=== PATIENT | male | born 1970 | race American Indian/Alaskan Native ===

== ENCOUNTER 2019-03-20 19:16 | Inpatient (IN) | payer OTHER ==
--- NOTE | 2019-03-20 21:03 | Emergency Department Report ---
Blank Doc - Documentation Documentation: 48-year-old male that presents with left sided abdominal pain with radiation to left testicular area. This initial assessment/diagnostic orders/clinical plan/treatment(s) is/are subject to change based on patient's health status, clinical progression and re- assessment by fellow clinical providers in the ED. Further treatment and workup at subsequent clinical providers discretion. Patient/guardians urged not to elope from the ED as their condition may be serious if not clinically assessed and managed. Initial orders include: 1- Patient sent to [facility] for further evaluation and treatment 2- labs 3- UA 4- US testicular
[2019-03-20] MEDS ORDERED: SODIUM CHLORIDE 0.9% 1000 ML 1,000 ML IV ONE (22:00)
[2019-03-20] MEDS ORDERED: KETOROLAC 30 MG/1 ML INJ IV ONE (22:00)
[2019-03-20] MEDS ORDERED: ONDANSETRON 4 MG/2 ML INJ IV ONE (22:00)
[2019-03-20 22:11] LABS: Basophils # (Auto) 0.1 K/mm3 (0.0-0.1); Basophils % (Auto) 0.9 % (0.0-1.8); Eosinophils # (Auto) 0.1 K/mm3 (0.0-0.4); Eosinophils % (Auto) 1.2 % (0.0-4.3); Hematocrit 38.5 % (35.5-45.6); Hemoglobin 13.1 gm/dl (11.8-15.2); Lymphocytes # (Auto) 2.7 K/mm3 (1.2-5.4); Lymphocytes % (Auto) 27.2 % (13.4-35.0); Mean Corpuscular HGB Conc 34 % (32-34); Mean Corpuscular Volume 83 fl (84-94); Monocytes # (Auto) 0.9 K/mm3 (0.0-0.8); Monocytes % (Auto) 9.1 % (0.0-7.3); Platelet Count 246 K/mm3 (140-440); Red Blood Count 4.65 M/mm3 (3.65-5.03); Red Cell Distribution Width 13.7 % (13.2-15.2)
--- NOTE | 2019-03-20 22:21 | Ultrasound Report ---
Scrotal Ultrasound HISTORY: testicular pain. TECHNIQUE: Grayscale and color imaging performed. COMPARISON: None FINDINGS: Right testicle measures 4.5 x 2.1 x 3.0 cm. Left testicle measures 4.3 x 2.3 x 3.0 cm. Ther e is preserved blood flow. The epididymal heads are normal. No hydrocele identified. No hernia. IMPRESSION: Unremarkable exam. Signer Name: Pavan Cleary MD Signed: 03/20/2019 10:17 PM Workstation Name: [id number]
[2019-03-20 22:39] LABS: Alanine Aminotransferase 19 units/L (7-56); Albumin 4.2 g/dL (3.9-5); BUN/Creatinine Ratio 14; Blood Urea Nitrogen 19 mg/dL (9-20); Calcium 9.3 mg/dL (8.4-10.2); Hemolysis Index 2
--- NOTE | 2019-03-21 00:03 | Cat Scan Report ---
CT ABDOMEN AND PELVIS WITH CONTRAST INDICATION: Left lower quadrant pain. COMPARISON: No relevant prior imaging study available. TECHNIQUE: Axial, coronal and sagittal CT imaging of the abdomen and pelvis was performed after inje ction of 100 cc Omnipaque [address] scans at this location are performed using CT dose re duction for ALARA by means of automated exposure control. FINDINGS: LOWER CHEST: No significant abnormality. LIVER: No significant abnormality. BILIARY: No significant abnormality. PANCREAS: No significant abnormality. SPLEEN: No significant abnormality. ADRENALS: No significant abnormality. KIDNEYS AND URETERS: No significant abnormality. GI TRACT: No significant abnormality of the stomach or small bowel. Sigmoid diverticulosis is noted w ith mild thickening of the proximal third of the sigmoid colon with surrounding inflammation. No belkis tional significant abnormality of the colon or appendix. PERITONEUM: There is a suspected contained perforation on image 146 of series 2 with a single focus o f probable extraluminal gas. No additional free air is seen. No fluid collection is identified. LYMPH NODES: No significant adenopathy. VASCULATURE: No significant abnormality. URINARY BLADDER: No significant abnormality. REPRODUCTIVE ORGANS: No significant abnormality. ADDITIONAL FINDINGS: None. SKELETAL SYSTEM: No acute abnormality. Mild degenerative changes are noted along the SI joints. IMPRESSION: Acute sigmoid diverticulitis with a suspected contained perforation. Signer Name: Juan Miguel Parekh MD Signed: 03/20/2019 11:59 PM Workstation Name: [id number]
--- NOTE | 2019-03-21 00:18 | Emergency Department Report ---
ED Abdominal Pain HPI - General Chief Complaint: Abdominal Pain Stated Complaint: ABD PAIN RADIATING TO LT TESTICLE Time Seen by Provider: 03/20/19 21:02 Source: patient Mode of arrival: Ambulatory Limitations: No Limitations - History of Present Illness Initial Comments: Patient is a 48-year-old -Turkish male with no past medical history who presents to the ED with complaint of acute onset persistent severe left lower quadrant pain that radiates to the left inguinal area with intermittent diarrhea for the last 2 days. Patient states that he had a similar symptoms over 3 months ago but never came to the hospital for evaluation at that time. Patient states that in the last 2 days the pain has worsened. Patient denies testicular pain, dysuria, urinary frequency and urgency, hematuria, flank pain, nausea and vomiting, fever, chills, cough, chest pain, shortness of breath, dizziness or syncope. MD Complaint: abdominal pain (LLQ pain), other (Diarrhe) -: Sudden, days(s) (2) Location: LLQ Radiation: LLQ Migration to: other (left inguinal) Severity: moderate Severity scale (0 -10): 6 Quality: aching, sharp Consistency: constant Improves With: nothing Worsens With: nothing Associated Symptoms: denies other symptoms, diarrhea. denies: nausea, vomiting, fever, chills, constipation, dysuria, hematemesis, hematochezia, melena, hematu claritza, anorexia, syncope - Related Data Allergies Allergy/AdvReac Type Severity Reaction Status Date / Time No Known Allergies Allergy Verified 03/21/19 00:35 ED Review of Systems ROS: Stated complaint: ABD PAIN RADIATING TO LT TESTICLE Other details as noted in HPI Constitutional: denies: chills, fever Eyes: denies: eye pain, eye discharge, vision change ENT: denies: ear pain, throat pain Respiratory: denies: cough, shortness of breath, wheezing Cardiovascular: denies: chest pain, palpitations Endocrine: no symptoms reported Gastrointestinal: abdominal pain, diarrhea. denies: nausea, vomiting Genitourinary: denies: urgency, dysuria Musculoskeletal: denies: back pain, joint swelling, arthralgia Skin: denies: rash, lesions Neurological: denies: headache, weakness, paresthesias Psychiatric: denies: anxiety, depression Hematological/Lymphatic: denies: easy bleeding, easy bruising ED Past Medical Hx - Past Medical History Previous Medical History?: No - Surgical History Past Surgical History?: No - Social History Smoking Status: Current Every Day Smoker Substance Use Type: Cocaine ED Physical Exam - General Limitations: No Limitations General appearance: alert, in no apparent distress - Head Head exam: Present: atraumatic, normocephalic, normal inspection - Eye Eye exam: Present: normal appearance, PERRL, EOMI Pupils: Present: normal accommodation - ENT ENT exam: Present: normal exam, normal orophraynx, mucous membranes moist, TM's normal bilaterally, normal external ear exam - Neck Neck exam: Present: normal inspection, full ROM - Respiratory Respiratory exam: Present: normal lung sounds bilaterally. Absent: respiratory distress, wheezes, rales, rhonchi, chest wall tenderness, accessory muscle use, decreased breath sounds, prolonged expiratory - Cardiovascular Cardiovascular Exam: Present: regular rate, normal rhythm, normal heart sounds. Absent: systolic murmur, diastolic murmur, rubs, gallop - GI/Abdominal GI/Abdominal exam: Present: soft, tenderness (Palpable left lower quadrant rebound tenderness with guarding ), guarding, rebound, normal bowel sounds. Absent: hyperactive bowel sounds - Extremities Exam Extremities exam: Present: normal inspection, full ROM, normal capillary refill - Back Exam Back exam: Present: normal inspection, full ROM. Absent: tenderness, CVA tenderness (R), CVA tenderness (L), muscle spasm, paraspinal tenderness, vertebral tenderness - Neurological Exam Neurological exam: Present: alert, oriented X3, CN II-XII intact, normal gait, reflexes normal - Psychiatric Psychiatric exam: Present: normal affect, normal mood - Skin Skin exam: Present: warm, dry, intact, normal color. Absent: rash ED Course Vital Signs 03/20/19 19:42 Temperature 98.2 F Pulse Rate 96 H Respiratory 18 Rate Blood Pressure 139/86 O2 Sat by Pulse 98 Oximetry ED Medical Decision Making - Lab Data Result diagrams: 03/20/19 21:42 03/20/19 21:42 - Radiology Data Radiology results: report reviewed, image reviewed Findings [facility] [address] [place] [address] Cat Scan Report Signed Patient: MANDI LOJA MR#: [id number] : 1970 Acct:[id number] Age/Sex: 48 / M ADM Date: 03/20/19 Loc: ED Attending Dr: Ordering Physician: MARIA E BISWAS Date of Service: 03/20/19 Procedure(s): CT abdomen pelvis w con Accession Number(s): [id number] cc: MARIA E BISWAS CT ABDOMEN AND PELVIS WITH CONTRAST INDICATION: Left lower quadrant pain. COMPARISON: No relevant prior imaging study available. TECHNIQUE: Axial, coronal and sagittal CT imaging of the abdomen and pelvis was performed after injection of 100 cc Omnipaque [address] scans at this location are performed using CT dose reduction for ALARA by means of automated exposure control. FINDINGS: LOWER CHEST: No significant abnormality. LIVER: No significant abnormality. BILIARY: No significant abnormality. PANCREAS: No significant abnormality. SPLEEN: No significant abnormality. ADRENALS: No significant abnormality. KIDNEYS AND URETERS: No significant abnormality. GI TRACT: No significant abnormality of the stomach or small bowel. Sigmoid diverticulosis is noted with mild thickening of the proximal third of the sigmoid colon with surrounding inflammation. No additional significant abnormality of the colon or appendix. PERITONEUM: There is a suspected contained perforation on image 146 of series 2 with a single focus of probable extraluminal gas. No additional free air is seen. No fluid collection is identified. LYMPH NODES: No significant adenopathy. VASCULATURE: No significant abnormality. URINARY BLADDER: No significant abnormality. REPRODUCTIVE ORGANS: No significant abnormality. ADDITIONAL FINDINGS: None. SKELETAL SYSTEM: No acute abnormality. Mild degenerative changes are noted along the SI joints. IMPRESSION: Acute sigmoid diverticulitis with a suspected contained perforation. Signer Name: Juan Miguel Parekh MD Signed: 03/20/2019 11:59 PM Workstation Name: [id number] Transcribed By: MN Dictated By: JuanM iguel Parekh MD Electronically Authenticated By: Juan Miguel Parekh MD Signed Date/Time: 03/20/19 6069 DD/ 54 TD/TT: - Medical Decision Making This is a 48-year-old -Turkish male with no past medical history presen josé miguel to the ED with acute onset persistent severe left lower quadrant abdominal pain with diarrhea for the last 2 days. In the ED, patient is alert and oriented x3 and is not in any distress but appears to be in pain. Physical exam demonstrates a palpable left lower quadrant rebound tenderness with guarding. Lab test results were reviewed and are all nonactionable including urinalysis. Abdomen pelvis CT scan with contrast shows acute sigmoid diverticulitis with a suspected contained perforation. The patient was initially treated for pain with Toradol but subsequently given morphine 4 mg IV x1 for pain control. Patient was also given normal saline 1 L IV bolus and Zofran. Patient's case was discussed with the ED attending physician Dr. Hendrickson who also evaluated the patient and advised that the General Surgeon Dr. Callahan and the hospitalist physician on [facility] Dr. Sanchez be paged for admission. - Differential Diagnosis Diverticulitis; Colitis; Peritonitis; UTI; Kidney stones Critical care attestation.: If time is entered above; I have spent that time in minutes in the direct care of this critically ill patient, excluding procedure time. ED Disposition Clinical Impression: Acute abdominal pain in left lower quadrant, Perforation of sigmoid colon due to diverticulitis Disposition: OP ADMIT IP TO THIS HOSP Is pt being admited?: No Does the pt Need Aspirin: No Condition: Stable Time of Disposition: 00:34 Print Language: ALBANIAN
[2019-03-21] MEDS ORDERED: PIPERACIL/TAZOBACTA 4.5/NS 100 4.5 GM/100 ML VIAL IV ONE (00:19)
[2019-03-21] MEDS ORDERED: MORPHINE 4 MG/1 ML INJ IV ONE (00:19)
[2019-03-21] MEDS ORDERED: ONDANSETRON 4 MG/2 ML INJ IV ONE (00:19)
--- NOTE | 2019-03-21 00:29 | Event Note ---
Date: 03/21/19 Patient seen and examined. IV fluids, antibiotics have been ordered. Please note that Toradol was ordered prior to my personal evaluation of this patient. Patient indicates that he does not have a need for additional pain medication at this time. Discussed significance of CT scan findings with patient. He is amenable to admission and hospitalization. PA to contact general surgery and hospitalist team to arrange admission. Patient hemodynamically stable at this time, and does not appear to be in any significant distress. Agree with plan for admission. Vital Signs 03/20/19 19:42 Temperature 98.2 F Pulse Rate 96 H Respiratory 18 Rate Blood Pressure 139/86 O2 Sat by Pulse 98 Oximetry Lab Results 03/20/19 03/20/19 03/20/19 Range/Units 21:42 21:42 21:48 WBC 10.1 (4.5-11.0) K/mm3 RBC 4.65 (3.65-5.03) M/mm3 Hgb 13.1 (11.8-15.2) gm/dl Hct 38.5 (35.5-45.6) % MCV 83 L (84-94) fl MCH 28 (28-32) pg MCHC 34 (32-34) % RDW 13.7 (13.2-15.2) % Plt Count 246 (140-440) K/mm3 Lymph % (Auto) 27.2 (13.4-35.0) % Emery % (Auto) 9.1 H (0.0-7.3) % Eos % (Auto) 1.2 (0.0-4.3) % Baso % (Auto) 0.9 (0.0-1.8) % Lymph # 2.7 (1.2-5.4) K/mm3 Emery # 0.9 H (0.0-0.8) K/mm3 Eos # 0.1 (0.0-0.4) K/mm3 Baso # 0.1 (0.0-0.1) K/mm3 Seg Neutrophils % 61.6 (40.0-70.0) % Seg Neutrophils # 6.2 (1.8-7.7) K/mm3 Sodium 141 (137-145) mmol/L Potassium 4.2 (3.6-5.0) mmol/L Chloride 101.5 (98-107) mmol/L Carbon Dioxide 24 (22-30) mmol/L Anion Gap 20 mmol/L BUN 19 (9-20) mg/dL Creatinine 1.4 (0.8-1.5) mg/dL Estimated GFR > 60 ml/min BUN/Creatinine Ratio 14 % Glucose 122 H (75-100) mg/dL Calcium 9.3 (8.4-10.2) mg/dL Total Bilirubin 0.30 (0.1-1.2) mg/dL AST 15 (5-40) units/L ALT 19 (7-56) units/L Alkaline Phosphatase 46 (35-129) units/L Total Protein 7.2 (6.3-8.2) g/dL Albumin 4.2 (3.9-5) g/dL Albumin/Globulin Ratio 1.4 % Lipase 50 (13-60) units/L
[2019-03-21] MEDS ORDERED: ONDANSETRON 4 MG/2 ML INJ IV PRN (00:41)
[2019-03-21] MEDS ORDERED: SODIUM CHLORIDE 0.9% 1000 ML 1,000 ML IV SCH (00:45)
[2019-03-21 00:49] LABS: Bilirubin,Urine NEG (Negative); Blood,Urine NEG (Negative); Color,Urine Yellow (Yellow); Mucus,Urine FEW /HPF; Protein,Urine <15 mg/dL mg/dL (Negative); WBC,Urine < 1.0 /HPF (0.0-6.0)
--- NOTE | 2019-03-21 01:52 | History and Physical Report ---
<ANDREA NAVA - Last Filed: 03/21/19 01:52> History of Present Illness Date of examination: 03/21/19 Date of admission: 03/21/2019 Chief complaint: Abdominal and testicular pain History of present illness: 48-year-old -[place] male with no significant past medical history who is an ongoing smoker and occasionally snorts cocaine who presents to [facility] ED with complaints of acute abdominal and testicular pain for the past 2 days. Patient states that he has been experiencing intermittent abdominal pain since November 2018, the pain usually resolves on its own. However 2 days ago he had severe abdominal pain with radiation to testicles that was unrelieved by rest and [id number] ibuprofen. He describes his pain as sharp and aching and rates it 10/10. He decided come in for evaluation. Denies nausea, vomiting, di arrhea, fever, headache, dysuria, hematuria, or recent sick contacts. CT abdomen/pelvis showed acute diverticulitis with contained perforation. General surgery was consulted with plans to see patient later on this morning. Will admit to the surgical floor for further evaluation and treatment. At the time of my examination patient is sitting up in stretcher no apparent distress. Vital signs are stable he is alert and oriented x3, able to answer questions, maintain conversation and and follow directions. He states that his abdominal pain has improved some since receiving IV pain medicine. He currently rates his pain 4/10. Past History Past Surgical History: No surgical history Social history: , lives with family, smoking, other (Cocaine use) Family history: no significant family history Medications and Allergies Allergies Allergy/AdvReac Type Severity Reaction Status Date / Time No Known Allergies Allergy Verified 03/21/19 00:35 Active Meds: Active Medications Enoxaparin Sodium (Enoxaparin) 40 mg SUB-Q QDAY FRANTZ Hydromorphone HCl (Dilaudid) 0.5 mg IV Q3H PRN PRN Reason: Pain , Severe (7-10) Sodium Chloride (Nacl 0.9% 1000 Ml) 1,000 mls @ 75 mls/hr IV DIRECT FRANTZ Stop: 03/21/19 12:00 Levofloxacin/Dextrose (Levaquin 500mg/100ml) 500 mg in 100 mls @ 100 mls/hr IV Q24HR FRANTZ; Protocol Metronidazole (Flagyl 500 Mg/100 Ml) 500 mg in 100 mls @ 100 mls/hr IV Q8HR FRANTZ; Protocol Morphine Sulfate (Morphine) 2 mg IV Q4H PRN PRN Reason: Pain, Moderate (4-6) Ondansetron HCl (Zofran) 4 mg IV Q6H PRN PRN Reason: Nausea And Vomiting Sodium Chloride (Sodium Chloride Flush Syringe 10 Ml) 10 ml IV BID FRANTZ Sodium Chloride (Sodium Chloride Flush Syringe 10 Ml) 10 ml IV PRN PRN PRN Reason: LINE FLUSH Review of Systems All systems: negative Gastrointestinal: abdominal pain Genitourinary Male: testicular pain Exam - Physical Exam Narrative exam: Physical exam General appearance: Present: No acute distress, alert and oriented 3, pleasant, well-developed, well-nourished, adult male - EENT Eyes: Present: PERRL, EOM intact ENT: hearing intact, normal dentition - Neck Neck: Present: supple, normal ROM - Respiratory Respiratory effort: Non-labored Respiratory: Clear throughout - Cardiovascular Heart rate: 96 (bpm) Rhythm: Sinus rhythm Heart Sounds: Present: S1 & S2. Absent: rub, click - Extremities Extremities: no ischemia, pulses intact, - Peripheral Assessment Peripheral Pulses: within normal limits - Abdominal General gastrointestinal: soft, left lower quad tenderness, normal bowel sounds - Integumentary Integumentary: Present: warm, dry - Musculoskeletal Musculoskeletal: Able to move all extremities -Neurological Neurological: CN II-XII intact - Psychiatric Psychiatric: Appropriate for situation ,cooperative - Constitutional Vitals: Temp Pulse Resp BP Pulse Ox 98.2 F 91 H 16 130/84 98 03/21/19 01:07 03/21/19 01:07 03/21/19 01:07 03/21/19 01:07 03/21/19 01:07 Results - Labs CBC & Chem 7: 03/20/19 21:42 03/20/19 21:42 Labs: Laboratory Last Values WBC 10.1 K/mm3 (4.5-11.0) 03/20/19 21:42 RBC 4.65 M/mm3 (3.65-5.03) 03/20/19 21:42 Hgb 13.1 gm/dl (11.8-15.2) 03/20/19 21:42 Hct 38.5 % (35.5-45.6) 03/20/19 21:42 MCV 83 fl (84-94) L 03/20/19 21:42 MCH 28 pg (28-32) 03/20/19 21:42 MCHC 34 % (32-34) 03/20/19 21:42 RDW 13.7 % (13.2-15.2) 03/20/19 21:42 Plt Count 246 K/mm3 (140-440) 03/20/19 21:42 Lymph % (Auto) 27.2 % (13.4-35.0) 03/20/19 21:42 Yates % (Auto) 9.1 % (0.0-7.3) H 03/20/19 21:42 Eos % (Auto) 1.2 % (0.0-4.3) 03/20/19 21:42 Baso % (Auto) 0.9 % (0.0-1.8) 03/20/19 21:42 Lymph # 2.7 K/mm3 (1.2-5.4) 03/20/19 21:42 Yates # 0.9 K/mm3 (0.0-0.8) H 03/20/19 21:42 Eos # 0.1 K/mm3 (0.0-0.4) 03/20/19 21:42 Baso # 0.1 K/mm3 (0.0-0.1) 03/20/19 21:42 Seg Neutrophils % 61.6 % (40.0-70.0) 03/20/19 21:42 Seg Neutrophils # 6.2 K/mm3 (1.8-7.7) 03/20/19 21:42 Sodium 141 mmol/L (137-145) 03/20/19 21:42 Potassium 4.2 mmol/L (3.6-5.0) 03/20/19 21:42 Chloride 101.5 mmol/L (98-107) 03/20/19 21:42 Carbon Dioxide 24 mmol/L (22-30) 03/20/19 21:42 Anion Gap 20 mmol/L 03/20/19 21:42 BUN 19 mg/dL (9-20) 03/20/19 21:42 Creatinine 1.4 mg/dL (0.8-1.5) 03/20/19 21:42 Estimated GFR > 60 ml/min 03/20/19 21:42 BUN/Creatinine Ratio 14 % 03/20/19 21:42 Glucose 122 mg/dL (75-100) H 03/20/19 21:42 Calcium 9.3 mg/dL (8.4-10.2) 03/20/19 21:42 Total Bilirubin 0.30 mg/dL (0.1-1.2) 03/20/19 21:42 AST 15 units/L (5-40) 03/20/19 21:42 ALT 19 units/L (7-56) 03/20/19 21:42 Alkaline Phosphatase 46 units/L (35-129) 03/20/19 21:42 Total Protein 7.2 g/dL (6.3-8.2) 03/20/19 21:42 Albumin 4.2 g/dL (3.9-5) 03/20/19 21:42 Albumin/Globulin Ratio 1.4 % 03/20/19 21:42 Lipase 50 units/L (13-60) 03/20/19 21:48 Urine Color Yellow (Yellow) 03/20/19 23:30 Urine Turbidity Clear (Clear) 03/20/19 23:30 Urine pH 6.0 (5.0-7.0) 03/20/19 23:30 Ur Specific [place] 1.051 (1.003-1.030) H 03/20/19 23:30 Urine Protein <15 mg/dl mg/dL (Negative) 03/20/19 23:30 Urine Glucose (UA) Neg mg/dL (Negative) 03/20/19 23:30 Urine Ketones Neg mg/dL (Negative) 03/20/19 23:30 Urine Blood Neg (Negative) 03/20/19 23:30 Urine Nitrite Neg (Negative) 03/20/19 23:30 Urine Bilirubin Neg (Negative) 03/20/19 23:30 Urine Urobilinogen 2.0 mg/dL (<2.0) 03/20/19 23:30 Ur Leukocyte Esterase Neg (Negative) 03/20/19 23:30 Urine WBC (Auto) < 1.0 /HPF (0.0-6.0) 03/20/19 23:30 Urine RBC (Auto) 1.0 /HPF (0.0-6.0) 03/20/19 23:30 Urine Mucus Few /HPF 03/20/19 23:30 - Imaging and Cardiology Imaging and Cardiology: CT Abdomen/Pelvis: FINDINGS: LOWER CHEST: No significant abnormality. LIVER: No significant abnormality. BILIARY: No significant abnormality. PANCREAS: No significant abnormality. SPLEEN: No significant abnormality. ADRENALS: No significant abnormality. KIDNEYS AND URETERS: No significant abnormality. GI TRACT: No significant abnormality of the stomach or small bowel. Sigmoid diverticulosis is noted with mild thickening of the proximal third of the sigmoid colon with laila rounding inflammation. No additional significant abnormality of the colon or appendix. PERITONEUM: There is a suspected contained perforation on image 146 of series 2 with a single focus of probable extraluminal gas. No additional free air is seen. No fluid collection is identified. LYMPH NODES: No significant adenopathy. VASCULATURE: No significant abnormality. URINARY BLADDER: No significant abnormality. REPRODUCTIVE ORGANS: No significant abnormality. ADDITIONAL FINDINGS: None. SKELETAL SYSTEM: No acute abnormality. Mild degenerative changes are noted along the SI joints. IMPRESSION: Acute sigmoid diverticulitis with a suspected contained perforation. US Testicular: FINDINGS: Right testicle measures 4.5 x 2.1 x 3.0 cm. Left testicle measures 4.3 x 2.3 x 3.0 cm. There is preserved blood flow. The epididymal heads are normal. No hydrocele identified. No hernia. IMPRESSION: Unremarkable exam. Assessment and Plan Assessment and plan: 48-year-old -[place] male with no significant past medical history who is an ongoing smoker and occasionally snorts cocaine who presents to [facility] ED with complaints of acute abdominal and testicular pain for the past 2 days. Acute diverticulitis -With suspected contained perforation seen on today's CT abdomen pelvis -N.p.o. -Start IVF and IV ABX -General surgery consulted -Continue supportive care Acute abdominal pain -secondary to acute diverticulitis -Continue supportive care Acute testicular pain -Testicular ultrasound negative -Likely secondary to abdominal pain -Continue supportive care Tobacco abuse -Current every day smoker -Smokes 3 to 4 cigarettes/day -Counseled for cessation for 8 minutes -Patient refused nicotine patch Cocaine abuse -Reports occasionally snorting cocaine -Counseled for cessation DVT PPX -SCD's Advance Directives: No VTE prophylaxis?: Mechanical Plan of care discussed with patient/family: Yes <EMILY KIDD - Last Filed: 03/21/19 02:21> History of Present Illness Date of admission: 03/21/19 00:32 Medications and Allergies Active Meds: Active Medications Enoxaparin Sodium (Enoxaparin) 40 mg SUB-Q QDAY FRANTZ Hydromorphone HCl (Dilaudid) 0.5 mg IV Q3H PRN PRN Reason: Pain , Severe (7-10) Sodium Chloride (Nacl 0.9% 1000 Ml) 1,000 mls @ 75 mls/hr IV DIRECT FRANTZ Stop: 03/21/19 12:00 Levofloxacin/Dextrose (Levaquin 500mg/100ml) 500 mg in 100 mls @ 100 mls/hr IV Q24HR FRANTZ; Protocol Metronidazole (Flagyl 500 Mg/100 Ml) 500 mg in 100 mls @ 100 mls/hr IV Q8HR FRANTZ; Protocol Morphine Sulfate (Morphine) 2 mg IV Q4H PRN PRN Reason: Pain, Moderate (4-6) Last Admin: 03/21/19 01:55 Dose: 2 mg Documented by: Ondansetron HCl (Zofran) 4 mg IV Q6H PRN PRN Reason: Nausea And Vomiting Sodium Chloride (Sodium Chloride Flush Syringe 10 Ml) 10 ml IV BID FRANTZ Sodium Chloride (Sodium Chloride Flush Syringe 10 Ml) 10 ml IV PRN PRN PRN Reason: LINE FLUSH Exam - Constitutional Vitals: Temp Pulse Resp BP Pulse Ox 98.2 F 91 H 16 130/84 98 03/21/19 01:07 03/21/19 01:07 03/21/19 01:07 03/21/19 01:07 03/21/19 01:07 Results - Labs CBC & Chem 7: 03/20/19 21:42 03/20/19 21:42 Labs: Laboratory Last Values WBC 10.1 K/mm3 (4.5-11.0) 03/20/19 21:42 RBC 4.65 M/mm3 (3.65-5.03) 03/20/19 21:42 Hgb 13.1 gm/dl (11.8-15.2) 03/20/19 21:42 Hct 38.5 % (35.5-45.6) 03/20/19 21:42 MCV 83 fl (84-94) L 03/20/19 21:42 MCH 28 pg (28-32) 03/20/19 21:42 MCHC 34 % (32-34) 03/20/19 21:42 RDW 13.7 % (13.2-15.2) 03/20/19 21:42 Plt Count 246 K/mm3 (140-440) 03/20/19 21:42 Lymph % (Auto) 27.2 % (13.4-35.0) 03/20/19 21:42 Yates % (Auto) 9.1 % (0.0-7.3) H 03/20/19 21:42 Eos % (Auto) 1.2 % (0.0-4.3) 03/20/19 21:42 Baso % (Auto) 0.9 % (0.0-1.8) 03/20/19 21:42 Lymph # 2.7 K/mm3 (1.2-5.4) 03/20/19 21:42 Yates # 0.9 K/mm3 (0.0-0.8) H 03/20/19 21:42 Eos # 0.1 K/mm3 (0.0-0.4) 03/20/19 21:42 Baso # 0.1 K/mm3 (0.0-0.1) 03/20/19 21:42 Seg Neutrophils % 61.6 % (40.0-70.0) 03/20/19 21:42 Seg Neutrophils # 6.2 K/mm3 (1.8-7.7) 03/20/19 21:42 Sodium 141 mmol/L (137-145) 03/20/19 21:42 Potassium 4.2 mmol/L (3.6-5.0) 03/20/19 21:42 Chloride 101.5 mmol/L (98-107) 03/20/19 21:42 Carbon Dioxide 24 mmol/L (22-30) 03/20/19 21:42 Anion Gap 20 mmol/L 03/20/19 21:42 BUN 19 mg/dL (9-20) 03/20/19 21:42 Creatinine 1.4 mg/dL (0.8-1.5) 03/20/19 21:42 Estimated GFR > 60 ml/min 03/20/19 21:42 BUN/Creatinine Ratio 14 % 03/20/19 21:42 Glucose 122 mg/dL (75-100) H 03/20/19 21:42 Calcium 9.3 mg/dL (8.4-10.2) 03/20/19 21:42 Total Bilirubin 0.30 mg/dL (0.1-1.2) 03/20/19 21:42 AST 15 units/L (5-40) 03/20/19 21:42 ALT 19 units/L (7-56) 03/20/19 21:42 Alkaline Phosphatase 46 units/L (35-129) 03/20/19 21:42 Total Protein 7.2 g/dL (6.3-8.2) 03/20/19 21:42 Albumin 4.2 g/dL (3.9-5) 03/20/19 21:42 Albumin/Globulin Ratio 1.4 % 03/20/19 21:42 Lipase 50 units/L (13-60) 03/20/19 21:48 Urine Color Yellow (Yellow) 03/20/19 23:30 Urine Turbidity Clear (Clear) 03/20/19 23:30 Urine pH 6.0 (5.0-7.0) 03/20/19 23:30 Ur Specific [place] 1.051 (1.003-1.030) H 03/20/19 23:30 Urine Protein <15 mg/dl mg/dL (Negative) 03/20/19 23:30 Urine Glucose (UA) Neg mg/dL (Negative) 03/20/19 23:30 Urine Ketones Neg mg/dL (Negative) 03/20/19 23:30 Urine Blood Neg (Negative) 03/20/19 23:30 Urine Nitrite Neg (Negative) 03/20/19 23:30 Urine Bilirubin Neg (Negative) 03/20/19 23:30 Urine Urobilinogen 2.0 mg/dL (<2.0) 03/20/19 23:30 Ur Leukocyte Esterase Neg (Negative) 03/20/19 23:30 Urine WBC (Auto) < 1.0 /HPF (0.0-6.0) 03/20/19 23:30 Urine RBC (Auto) 1.0 /HPF (0.0-6.0) 03/20/19 23:30 Urine Mucus Few /HPF 03/20/19 23:30 Assessment and Plan Assessment and plan: Patient seen and examined, discussed with nurse practitioner, agree with plan as stated above
[2019-03-21] MEDS ORDERED: MORPHINE 2 MG/1 ML INJ ONE (01:53)
[2019-03-21] MEDS: MORPHINE 2 MG/1 ML INJ IV PRN ×2 (01:55→22:52)
[2019-03-21] MEDS: metroNIDAZOLE/NS 500 MG/100 ML 500 MG/100 ML BAG IV SCH ×3 (05:37→20:59)
[2019-03-21] MEDS: HYDROmorphone 1 MG/1 ML INJ IV PRN ×2 (05:37→13:56)
[2019-03-21] MEDS ORDERED: ACETAMINOPHEN 650 MG RECT SUPP PR PRN (08:02)
--- NOTE | 2019-03-21 10:15 | Consultation ---
History of Present Illness Consult date: 03/21/19 Reason for consult: abdominal pain Chief complaint: Abdominal pain - History of present illness History of present illness: 48-year-old male with no past medical history who presented to the emergency nathan with several days of worsening left lower quadrant abdominal pain. The patient states that the pain is sharp and radiates to the left testicle. There are no exacerbating or alleviating factors. He states that he had a similar episode in November which was mild and resolved on its own. He has never had pain like this prior to that episode. He states that he has intermittent bright red blood per rectum. He has not been regularly following up with a doctor. He states that he has been having normal bowel movements and passing flatus. No nausea or vomiting. No fevers, chills, chest pain, shortness of breath. Social history is significant for a regular cocaine use. He has never had a co lonoscopy. Past History Past Medical History: No medical history Past Surgical History: No surgical history Social history: , lives with family, smoking, other (Cocaine use) Family history: no significant family history Medications and Allergies Allergies Allergy/AdvReac Type Severity Reaction Status Date / Time shellfish derived Allergy Unknown Verified 03/21/19 10:46 Active Meds: Active Medications Acetaminophen (Tylenol) 650 mg [place] Q6H PRN PRN Reason: Pain, Mild (1-3) Enoxaparin Sodium (Enoxaparin) 40 mg SUB-Q QDAY FRANTZ Hydromorphone HCl (Dilaudid) 0.5 mg IV Q3H PRN PRN Reason: Pain , Severe (7-10) Last Admin: 03/21/19 05:37 Dose: 0.5 mg Documented by: Sodium Chloride (Nacl 0.9% 1000 Ml) 1,000 mls @ 75 mls/hr IV DIRECT FRANTZ Stop: 03/21/19 12:00 Last Admin: 03/21/19 03:05 Dose: 75 mls/hr Documented by: Levofloxacin/Dextrose (Levaquin 500mg/100ml) 500 mg in 100 mls @ 100 mls/hr IV Q24HR FRANTZ; Protocol Metronidazole (Flagyl 500 Mg/100 Ml) 500 mg in 100 mls @ 100 mls/hr IV Q8HR FRANTZ; Protocol Last Admin: 03/21/19 05:37 Dose: 100 mls/hr Documented by: Morphine Sulfate (Morphine) 2 mg IV Q4H PRN PRN Reason: Pain, Moderate (4-6) Last Admin: 03/21/19 01:55 Dose: 2 mg Documented by: Ondansetron HCl (Zofran) 4 mg IV Q6H PRN PRN Reason: Nausea And Vomiting Sodium Chloride (Sodium Chloride Flush Syringe 10 Ml) 10 ml IV BID FRANTZ Sodium Chloride (Sodium Chloride Flush Syringe 10 Ml) 10 ml IV PRN PRN PRN Reason: LINE FLUSH Review of Systems All systems: negative (10 point review of systems was performed and negative except for that listed in HPI) Exam Vital Signs Temp Pulse Resp BP Pulse Ox 98.2 F 96 H 18 139/86 98 03/20/19 19:42 03/20/19 19:42 03/20/19 19:42 03/20/19 19:42 03/20/19 19:42 Narrative exam: Gen.: Awake, alert, oriented 3. No apparent distress HEENT: No scleral icterus or conjunctival pallor CV: S1, S2 present Respiratory: No audible wheezes Abdomen: Soft, nondistended, positive point tenderness in the left lower quadrant with voluntary guarding. No rebound, rigidity. Extremities: No clubbing, cyanosis, edema Results - Labs 03/20/19 21:42 03/20/19 21:42 Abnormal lab results 03/20/19 03/20/19 03/20/19 Range/Units 21:42 21:42 23:30 MCV 83 L (84-94) fl [place] % (Auto) 9.1 H (0.0-7.3) % [place] # 0.9 H (0.0-0.8) K/mm3 Glucose 122 H (75-100) mg/dL Ur Specific [place] 1.051 H (1.003-1.030) Diabetes panel 03/20/19 Range/Units 21:42 Sodium 141 (137-145) mmol/L Potassium 4.2 (3.6-5.0) mmol/L Chloride 101.5 (98-107) mmol/L Carbon Dioxide 24 (22-30) mmol/L BUN 19 (9-20) mg/dL Creatinine 1.4 (0.8-1.5) mg/dL Glucose 122 H (75-100) mg/dL Calcium 9.3 (8.4-10.2) mg/dL AST 15 (5-40) units/L ALT 19 (7-56) units/L Alkaline Phosphatase 46 (35-129) units/L Total Protein 7.2 (6.3-8.2) g/dL Albumin 4.2 (3.9-5) g/dL Calcium panel 03/20/19 Range/Units 21:42 Calcium 9.3 (8.4-10.2) mg/dL Albumin 4.2 (3.9-5) g/dL Pituitary panel 03/20/19 Range/Units 21:42 Sodium 141 (137-145) mmol/L Potassium 4.2 (3.6-5.0) mmol/L Chloride 101.5 (98-107) mmol/L Carbon Dioxide 24 (22-30) mmol/L BUN 19 (9-20) mg/dL Creatinine 1.4 (0.8-1.5) mg/dL Glucose 122 H (75-100) mg/dL Calcium 9.3 (8.4-10.2) mg/dL Adrenal panel 03/20/19 Range/Units 21:42 Sodium 141 (137-145) mmol/L Potassium 4.2 (3.6-5.0) mmol/L Chloride 101.5 (98-107) mmol/L Carbon Dioxide 24 (22-30) mmol/L BUN 19 (9-20) mg/dL Creatinine 1.4 (0.8-1.5) mg/dL Glucose 122 H (75-100) mg/dL Calcium 9.3 (8.4-10.2) mg/dL Total Bilirubin 0.30 (0.1-1.2) mg/dL AST 15 (5-40) units/L ALT 19 (7-56) units/L Alkaline Phosphatase 46 (35-129) units/L Total Protein 7.2 (6.3-8.2) g/dL Albumin 4.2 (3.9-5) g/dL - Imaging CT scan - abdomen: report reviewed, image reviewed CT scan - pelvis: report reviewed, image reviewed Assessment and Plan 48-year-old male with acute sigmoid diverticulitis with contained microperforation Plan: 1. NPO 2. IVF - increase rate to 125cc/hr 3. IV abx - on levaquin and flagyl 4. prn pain and nausea control 5. repeat CBC in am. WBC is normal on presentation. 6. bl cx ordered Currently pt is stable. Recommend continuing above management and further recs pending clinical course. At this time I do not recommend emergent surgery. However, I did discuss with the patient that if he decompensates we may need to proceed with surgery - colon resection with likely colostomy. He understands. All questions answered. Thank you, please call with questions.
[2019-03-21] MEDS: ENOXAPARIN 40 MG/0.4 ML INJ SUB-Q SCH (11:30)
[2019-03-21] MEDS ORDERED: ACETAMINOPHEN 325 MG TAB PO SCH (15:30)
[2019-03-21] MEDS: SODIUM CHLORIDE 0.9% 1000 ML 1,000 ML IV SCH (20:58)
--- NOTE | 2019-03-21 21:00 | Event Note ---
Date: 03/21/19 48-year-old obese male patient was admitted early this morning with acute sigmoid diverticulitis with contained microperforation. Evaluated by surgery, recommend medical management at this point, n.p.o. status. Patient seen and examined at the bedside,patient's chart and other records reviewed Agree with the current management, closely monitor and adjust as needed Surgery evaluation and recommendations noted and appreciated
[2019-03-22] MEDS: HYDROmorphone 1 MG/1 ML INJ IV PRN (02:24)
[2019-03-22] MEDS: metroNIDAZOLE/NS 500 MG/100 ML 500 MG/100 ML BAG IV SCH ×3 (05:16→22:55)
[2019-03-22 07:20] LABS: Basophils # (Auto) 0.1 K/mm3 (0.0-0.1); Basophils % (Auto) 0.6 % (0.0-1.8); Eosinophils % (Auto) 0.3 % (0.0-4.3); Hematocrit 36.5 % (35.5-45.6); Hemoglobin 11.9 gm/dl (11.8-15.2); Lymphocytes # (Auto) 2.3 K/mm3 (1.2-5.4); Lymphocytes % (Auto) 16.3 % (13.4-35.0); Mean Corpuscular HGB Conc 33 % (32-34); Mean Corpuscular Volume 84 fl (84-94); Monocytes # (Auto) 1.1 K/mm3 (0.0-0.8); Monocytes % (Auto) 7.7 % (0.0-7.3); Platelet Count 220 K/mm3 (140-440); Red Blood Count 4.34 M/mm3 (3.65-5.03); Red Cell Distribution Width 14.1 % (13.2-15.2)
[2019-03-22 07:45] LABS: BUN/Creatinine Ratio 15; Blood Urea Nitrogen 15 mg/dL (9-20); Calcium 8.7 mg/dL (8.4-10.2); Hemolysis Index 1
[2019-03-22] MEDS: ENOXAPARIN 40 MG/0.4 ML INJ SUB-Q SCH (09:19)
--- NOTE | 2019-03-22 13:33 | Progress Note ---
Assessment and Plan - Patient Problems (1) Perforation of sigmoid colon due to diverticulitis Current Visit: Yes Status: Acute Plan to address problem: Pt stable. 48-year-old male with acute sigmoid diverticulitis with contained microperforation. Clinically, he looks to be doing well. Bowel function has started to resume. WBC did go up, but he is clinically better. - ambulate - bolus IVF (still a bit dehydrated) - sips and chips. - CBC in AM. Please call with questions. time=10min Subjective Date of service: 03/22/19 Patient Reports: Positive: no new complaints, still having pain (unchanged), flatus, no bowel movement. Negative: nausea, vomiting Objective Vital Signs - 12hr 03/22/19 03/22/19 03/22/19 02:24 02:54 03:53 Temperature 97.6 F Pulse Rate 56 L Respiratory 17 17 20 Rate Blood Pressure 135/86 O2 Sat by Pulse 81 L Oximetry 03/22/19 03/22/19 03/22/19 04:00 07:00 11:35 Temperature 98.0 F 98.0 F Pulse Rate 94 H 89 Respiratory 17 20 18 Rate Blood Pressure 125/84 130/94 O2 Sat by Pulse 97 97 96 Oximetry - General physical appearance no distress, no pain, obese, other (looks well) - Respiratory normal expansion, normal respiratory effort - Abdomen soft, tender (focal in LLQ), not distended, guarding (voluntary in LLQ only), not rigid, not wound - Integumentary no rash, no growths, no abnormal pigmentation - Psychiatric oriented to time, oriented to person, oriented to place, speech is normal, memory intact - Labs 03/22/19 06:26 03/22/19 06:26 Diabetes panel 03/22/19 Range/Units 06:26 Sodium 139 (137-145) mmol/L Potassium 4.1 (3.6-5.0) mmol/L Chloride 101.6 (98-107) mmol/L Carbon Dioxide 22 (22-30) mmol/L BUN 15 (9-20) mg/dL Creatinine 1.0 (0.8-1.5) mg/dL Glucose 87 (75-100) mg/dL Calcium 8.7 (8.4-10.2) mg/dL Calcium panel 03/22/19 Range/Units 06:26 Calcium 8.7 (8.4-10.2) mg/dL Pituitary panel 03/22/19 Range/Units 06:26 Sodium 139 (137-145) mmol/L Potassium 4.1 (3.6-5.0) mmol/L Chloride 101.6 (98-107) mmol/L Carbon Dioxide 22 (22-30) mmol/L BUN 15 (9-20) mg/dL Creatinine 1.0 (0.8-1.5) mg/dL Glucose 87 (75-100) mg/dL Calcium 8.7 (8.4-10.2) mg/dL Adrenal panel 03/22/19 Range/Units 06:26 Sodium 139 (137-145) mmol/L Potassium 4.1 (3.6-5.0) mmol/L Chloride 101.6 (98-107) mmol/L Carbon Dioxide 22 (22-30) mmol/L BUN 15 (9-20) mg/dL Creatinine 1.0 (0.8-1.5) mg/dL Glucose 87 (75-100) mg/dL Calcium 8.7 (8.4-10.2) mg/dL
[2019-03-22] MEDS ORDERED: SODIUM CHLORIDE 0.9% 1000 ML 1,000 ML IV ONE (13:45)
--- NOTE | 2019-03-22 19:20 | Progress Note ---
Assessment and Plan Assessment and plan: --Acute sigmoid diverticulitis with contained microperforation; Surgery evaluation noted and appreciated Advise conservative management with IV antibiotics, n.p.o. status Pain medications, IV fluids --Acute testicular pain; Probably referred pain from abdomen Supportive care, testicular ultrasound negative for abnormality --Ongoing tobacco use; smoking cessation counseling Nicotine patch as needed --Recreational drug use; advised to quit cocaine Another recreational drug use Verbalized understanding --Obesity; BMI 38.4; Advised weight reduction when medically stable --DVT prophylaxis; Lovenox Monitor closely and adjust management as needed Plan of care reviewed with the patient and his nurse History Interval history: Patient seen and examined at bedside in the surgical floor today Last 24-hour events noted, surgery evaluation recommendations appreciated Patient feels slightly better, had flatus Denies nausea vomiting, continues to have pain in the abdomen Significantly improved since admission Vital signs noted Hospitalist Physical - Constitutional Vitals: Temp Pulse Resp BP Pulse Ox 98.0 F 91 H 20 128/73 99 03/22/19 15:56 03/22/19 15:56 03/22/19 15:56 03/22/19 15:56 03/22/19 15:56 General appearance: Present: mild distress, well-nourished - EENT Eyes: Present: PERRL, EOM intact - Neck Neck: Present: supple, normal ROM - Respiratory Respiratory effort: normal Respiratory: bilateral: diminished, negative: rales, rhonchi, wheezing - Cardiovascular Rhythm: regular Heart Sounds: Present: S1 & S2 - Extremities Extremities: no ischemia, No edema - Abdominal General gastrointestinal: soft, tender (No guarding no rigidity), hypoactive bowel sounds - Integumentary Integumentary: Present: clear, warm - Psychiatric Psychiatric: appropriate mood/affect, agitated - Neurologic Neurologic: moves all extremities Results - Labs CBC & Chem 7: 03/22/19 06:26 03/22/19 06:26 Labs: Laboratory Last Values WBC 13.9 K/mm3 (4.5-11.0) H 03/22/19 06:26 RBC 4.34 M/mm3 (3.65-5.03) 03/22/19 06:26 Hgb 11.9 gm/dl (11.8-15.2) 03/22/19 06:26 Hct 36.5 % (35.5-45.6) 03/22/19 06:26 MCV 84 fl (84-94) 03/22/19 06:26 MCH 28 pg (28-32) 03/22/19 06:26 MCHC 33 % (32-34) 03/22/19 06:26 RDW 14.1 % (13.2-15.2) 03/22/19 06:26 Plt Count 220 K/mm3 (140-440) 03/22/19 06:26 Lymph % (Auto) 16.3 % (13.4-35.0) 03/22/19 06:26 [place] % (Auto) 7.7 % (0.0-7.3) H 03/22/19 06:26 Eos % (Auto) 0.3 % (0.0-4.3) 03/22/19 06:26 Baso % (Auto) 0.6 % (0.0-1.8) 03/22/19 06:26 Lymph # 2.3 K/mm3 (1.2-5.4) 03/22/19 06:26 [place] # 1.1 K/mm3 (0.0-0.8) H 03/22/19 06:26 Eos # 0.0 K/mm3 (0.0-0.4) 03/22/19 06:26 Baso # 0.1 K/mm3 (0.0-0.1) 03/22/19 06:26 Seg Neutrophils % 75.1 % (40.0-70.0) H 03/22/19 06:26 Seg Neutrophils # 10.4 K/mm3 (1.8-7.7) H 03/22/19 06:26 Sodium 139 mmol/L (137-145) 03/22/19 06:26 Potassium 4.1 mmol/L (3.6-5.0) 03/22/19 06:26 Chloride 101.6 mmol/L (98-107) 03/22/19 06:26 Carbon Dioxide 22 mmol/L (22-30) 03/22/19 06:26 Anion Gap 20 mmol/L 03/22/19 06:26 BUN 15 mg/dL (9-20) 03/22/19 06:26 Creatinine 1.0 mg/dL (0.8-1.5) 03/22/19 06:26 Estimated GFR > 60 ml/min 03/22/19 06:26 BUN/Creatinine Ratio 15 % 03/22/19 06:26 Glucose 87 mg/dL (75-100) 03/22/19 06:26 Calcium 8.7 mg/dL (8.4-10.2) 03/22/19 06:26 Total Bilirubin 0.30 mg/dL (0.1-1.2) 03/20/19 21:42 AST 15 units/L (5-40) 03/20/19 21:42 ALT 19 units/L (7-56) 03/20/19 21:42 Alkaline Phosphatase 46 units/L (35-129) 03/20/19 21:42 Total Protein 7.2 g/dL (6.3-8.2) 03/20/19 21:42 Albumin 4.2 g/dL (3.9-5) 03/20/19 21:42 Albumin/Globulin Ratio 1.4 % 03/20/19 21:42 Lipase 50 units/L (13-60) 03/20/19 21:48 Urine Color Yellow (Yellow) 03/20/19 23:30 Urine Turbidity Clear (Clear) 03/20/19 23:30 Urine pH 6.0 (5.0-7.0) 03/20/19 23:30 Ur Specific [place] 1.051 (1.003-1.030) H 03/20/19 23:30 Urine Protein <15 mg/dl mg/dL (Negative) 03/20/19 23:30 Urine Glucose (UA) Neg mg/dL (Negative) 03/20/19 23:30 Urine Ketones Neg mg/dL (Negative) 03/20/19 23:30 Urine Blood Neg (Negative) 03/20/19 23:30 Urine Nitrite Neg (Negative) 03/20/19 23:30 Urine Bilirubin Neg (Negative) 03/20/19 23:30 Urine Urobilinogen 2.0 mg/dL (<2.0) 03/20/19 23:30 Ur Leukocyte Esterase Neg (Negative) 03/20/19 23:30 Urine WBC (Auto) < 1.0 /HPF (0.0-6.0) 03/20/19 23:30 Urine RBC (Auto) 1.0 /HPF (0.0-6.0) 03/20/19 23:30 Urine Mucus Few /HPF 03/20/19 23:30 Active Medications - Current Medications Current Medications: Generic Name Dose Route Start Last Admin Trade Name Freq PRN Reason Stop Dose Admin Acetaminophen 650 mg 03/21/19 08:02 03/21/19 11:31 Tylenol [place] 650 mg Q6H PRN Administration Pain, Mild (1-3) Enoxaparin Sodium 40 mg 03/21/19 10:00 03/22/19 09:19 Enoxaparin SUB-Q 40 mg QDAY FRANTZ Administration Hydromorphone HCl 0.5 mg 03/21/19 00:42 03/22/19 02:24 Dilaudid IV 0.5 mg Q3H PRN Administration Pain , Severe (7-10) Levofloxacin/Dextrose 500 mg in 100 mls @ 100 mls/hr 03/21/19 10:00 03/22/19 09:19 Levaquin 500mg/100ml IV 100 mls/hr Q24HR FRANTZ Administration Protocol Metronidazole 500 mg in 100 mls @ 100 mls/hr 03/21/19 06:00 03/22/19 13:47 Flagyl 500 Mg/100 Ml IV 100 mls/hr Q8HR FRANTZ Administration Protocol Sodium Chloride 1,000 mls @ 125 mls/hr 03/21/19 19:45 03/21/19 20:58 Nacl 0.9% 1000 Ml IV 125 mls/hr DIRECT FRANTZ Administration Morphine Sulfate 2 mg 03/21/19 00:42 03/21/19 22:52 Morphine IV 2 mg Q4H PRN Administration Pain, Moderate (4-6) Ondansetron HCl 4 mg 03/21/19 00:41 Zofran IV Q6H PRN Nausea And Vomiting Sodium Chloride 10 ml 03/21/19 10:00 03/22/19 10:15 Sodium Chloride Flush Syringe 10 Ml IV 10 ml BID FRANTZ Administration Sodium Chloride 10 ml 03/21/19 00:41 Sodium Chloride Flush Syringe 10 Ml IV PRN PRN LINE FLUSH Nutrition/Malnutrition Assess - Dietary Evaluation Nutrition/Malnutrition Findings: Nutrition Notes Start: 03/21/19 10:41 Freq: Status: Active Protocol: Document 03/21/19 10:42 CW (Rec: 03/21/19 11:07 CW [id number]) Co-Sign 03/21/19 10:42 LP Nutrition Notes Need for 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 Pt reports having a good appetite and denies N/V/D. Pt states a UBW of 290 lbs and that he last weighed that in November 2018. Pt reported that the wt loss was D/T increase in work schedule but that now he is attempting to maintain his wt. Pt given diet edu related to a low fiber diet during times of diverticulitis flare up. 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 Burn Absent Trauma Absent GI Symptoms Other Current % PO Negligible Minimum of two criteria No physical signs of malnutrition #1 Nutrition Diagnosis Inadequate oral intake Etiology perforation of the colon D/T diverticulitis As Evidenced by Signs and Symptoms NPO status Is patient on ventilator? No Is Patient Ambulatory and/or Out of Bed Yes REE-([facility]-ambulatory/OOB) [ 2856.100 NUTR.MSJOOB] Kcal/Kg value to use for calculation 18 Approximate Energy Requirements Using 2311 kcal/Kg Calculation Used for Recommendations Kcal/kg Additional Notes protein needs: 84 - 105 g (0.8 - 1 g/kgAdBW: AdBW: 104.65 kg ) fluid needs: 1 ml/kcal Nutrition Intervention Change Diet Order: advance diet as medically feasible Teaching Recipient Patient Learning Readiness Good Teaching Methods Discussion,Handout Response to Teaching Verbalize understanding Education Handouts Provided Diverticulitis - Low fiber diet Fiber Food list Barriers to Learning No Barriers RD phone number provided Yes Patient aware of follow up options Yes Goal #1 Advance diet as medically feasible Anticipated Discharge Needs: Regular diet Follow-Up By: 03/25/19 Additional Comments F/U diet advancement
[2019-03-23] MEDS: HYDROmorphone 1 MG/1 ML INJ IV PRN (03:21)
[2019-03-23] MEDS: metroNIDAZOLE/NS 500 MG/100 ML 500 MG/100 ML BAG IV SCH ×3 (06:02→21:59)
[2019-03-23] MEDS: SODIUM CHLORIDE 0.9% 1000 ML 1,000 ML IV SCH ×3 (06:05→22:02)
[2019-03-23 06:54] LABS: Basophils # (Auto) 0.1 K/mm3 (0.0-0.1); Basophils % (Auto) 0.9 % (0.0-1.8); Eosinophils # (Auto) 0.1 K/mm3 (0.0-0.4); Hematocrit 36.7 % (35.5-45.6); Hemoglobin 11.8 gm/dl (11.8-15.2); Lymphocytes # (Auto) 2.3 K/mm3 (1.2-5.4); Lymphocytes % (Auto) 23.9 % (13.4-35.0); Mean Corpuscular HGB Conc 32 % (32-34); Mean Corpuscular Volume 84 fl (84-94); Monocytes % (Auto) 10.8 % (0.0-7.3); Platelet Count 234 K/mm3 (140-440); Red Blood Count 4.38 M/mm3 (3.65-5.03); Red Cell Distribution Width 13.8 % (13.2-15.2)
[2019-03-23] MEDS: MORPHINE 2 MG/1 ML INJ IV PRN (07:41)
[2019-03-23] MEDS: ENOXAPARIN 40 MG/0.4 ML INJ SUB-Q SCH (09:37)
--- NOTE | 2019-03-23 13:26 | Progress Note ---
Assessment and Plan - Patient Problems (1) Perforation of sigmoid colon due to diverticulitis Current Visit: Yes Status: Acute Plan to address problem: Pt stable. 48-year-old male with acute sigmoid diverticulitis with contained microperforation. Clinically, he looks to be doing well. Bowel function has started to resume. WBC is back to normal. His exam is much improved. I will advance his diet to clears today. If he does well, he may be advanced to soft diet tomorrow. If he continues to well I think he can probably be discharged tomorrow on oral antibiotics to complete a 14-day course. Dr. Callahan will be coming back on service tomorrow and she can make a final assessment. - ambulate - clear liquid diet Please call with questions. time=10min Subjective Date of service: 03/23/19 Patient Reports: Positive: no new complaints, feels better, pain is less, flatus, no bowel movement. Negative: nausea, vomiting Objective Vital Signs - 12hr 03/23/19 03/23/19 03/23/19 04:11 06:51 11:12 Temperature 98.7 F 98.0 F 98.2 F Pulse Rate 82 85 Respiratory 18 20 20 Rate Blood Pressure 145/92 136/90 143/92 Blood Pressure [Left] O2 Sat by Pulse 95 98 Oximetry 03/23/19 11:15 Temperature 98.3 F Pulse Rate 83 Respiratory 20 Rate Blood Pressure Blood Pressure 143/92 [Left] O2 Sat by Pulse 97 Oximetry - General physical appearance no distress, no pain, obese, other (looks better. smiling in bed) - Eyes normal occular movement - Respiratory normal expansion, normal respiratory effort - Abdomen soft, not tender, bowel sounds normal, not distended, not guarding, not rigid - Integumentary no rash, no growths, no abnormal pigmentation - Psychiatric oriented to time, oriented to person, oriented to place, speech is normal, memory intact - Labs 03/23/19 06:16 03/22/19 06:26
--- NOTE | 2019-03-23 15:35 | Progress Note ---
Assessment and Plan Assessment and plan: --Acute sigmoid diverticulitis with contained microperforation; Surgery evaluation noted and appreciated Advise conservative management with IV antibiotics, on clear liquid diet, Pain medications, IV fluids --Acute testicular pain;resolved Probably referred pain from abdomen Supportive care, testicular ultrasound negative for abnormality --Ongoing tobacco use; smoking cessation counseling Nicotine patch as needed --Recreational drug use; advised to quit cocaine And other recreational drug use Verbalized understanding --Obesity; BMI 38.4; Advised weight reduction when medically stable --DVT prophylaxis; Lovenox Monitor closely and adjust management as needed Plan of care reviewed with the patient and his nurse History Interval history: Patient feels better Had bowel movement, no new complaints Surgery started on clear liquids Vital signs stable Hospitalist Physical - Constitutional Vitals: Temp Pulse Resp BP Pulse Ox 98.3 F 83 20 143/92 97 03/23/19 11:15 03/23/19 11:15 03/23/19 11:15 03/23/19 11:15 03/23/19 11:15 General appearance: Present: no acute distress, well-nourished, obese - EENT Eyes: Present: PERRL, EOM intact - Neck Neck: Present: supple, normal ROM - Respiratory Respiratory effort: normal Respiratory: bilateral: diminished, negative: rales, rhonchi, wheezing - Cardiovascular Rhythm: regular Heart Sounds: Present: S1 & S2 - Extremities Extremities: no ischemia, No edema - Abdominal General gastrointestinal: soft, tender (mild), non-distended, normal bowel sounds - Integumentary Integumentary: Present: clear, warm - Psychiatric Psychiatric: appropriate mood/affect, cooperative - Neurologic Neurologic: moves all extremities Results - Labs CBC & Chem 7: 03/23/19 06:16 03/22/19 06:26 Labs: Laboratory Last Values WBC 9.6 K/mm3 (4.5-11.0) 03/23/19 06:16 RBC 4.38 M/mm3 (3.65-5.03) 03/23/19 06:16 Hgb 11.8 gm/dl (11.8-15.2) 03/23/19 06:16 Hct 36.7 % (35.5-45.6) 03/23/19 06:16 MCV 84 fl (84-94) 03/23/19 06:16 MCH 27 pg (28-32) L 03/23/19 06:16 MCHC 32 % (32-34) 03/23/19 06:16 RDW 13.8 % (13.2-15.2) 03/23/19 06:16 Plt Count 234 K/mm3 (140-440) 03/23/19 06:16 Lymph % (Auto) 23.9 % (13.4-35.0) 03/23/19 06:16 [place] % (Auto) 10.8 % (0.0-7.3) H 03/23/19 06:16 Eos % (Auto) 1.0 % (0.0-4.3) 03/23/19 06:16 Baso % (Auto) 0.9 % (0.0-1.8) 03/23/19 06:16 Lymph # 2.3 K/mm3 (1.2-5.4) 03/23/19 06:16 [place] # 1.0 K/mm3 (0.0-0.8) H 03/23/19 06:16 Eos # 0.1 K/mm3 (0.0-0.4) 03/23/19 06:16 Baso # 0.1 K/mm3 (0.0-0.1) 03/23/19 06:16 Seg Neutrophils % 63.4 % (40.0-70.0) 03/23/19 06:16 Seg Neutrophils # 6.1 K/mm3 (1.8-7.7) 03/23/19 06:16 Sodium 139 mmol/L (137-145) 03/22/19 06:26 Potassium 4.1 mmol/L (3.6-5.0) 03/22/19 06:26 Chloride 101.6 mmol/L (98-107) 03/22/19 06:26 Carbon Dioxide 22 mmol/L (22-30) 03/22/19 06:26 Anion Gap 20 mmol/L 03/22/19 06:26 BUN 15 mg/dL (9-20) 03/22/19 06:26 Creatinine 1.0 mg/dL (0.8-1.5) 03/22/19 06:26 Estimated GFR > 60 ml/min 03/22/19 06:26 BUN/Creatinine Ratio 15 % 03/22/19 06:26 Glucose 87 mg/dL (75-100) 03/22/19 06:26 Calcium 8.7 mg/dL (8.4-10.2) 03/22/19 06:26 Total Bilirubin 0.30 mg/dL (0.1-1.2) 03/20/19 21:42 AST 15 units/L (5-40) 03/20/19 21:42 ALT 19 units/L (7-56) 03/20/19 21:42 Alkaline Phosphatase 46 units/L (35-129) 03/20/19 21:42 Total Protein 7.2 g/dL (6.3-8.2) 03/20/19 21:42 Albumin 4.2 g/dL (3.9-5) 03/20/19 21:42 Albumin/Globulin Ratio 1.4 % 03/20/19 21:42 Lipase 50 units/L (13-60) 03/20/19 21:48 Urine Color Yellow (Yellow) 03/20/19 23:30 Urine Turbidity Clear (Clear) 03/20/19 23:30 Urine pH 6.0 (5.0-7.0) 03/20/19 23:30 Ur Specific [place] 1.051 (1.003-1.030) H 03/20/19 23:30 Urine Protein <15 mg/dl mg/dL (Negative) 03/20/19 23:30 Urine Glucose (UA) Neg mg/dL (Negative) 03/20/19 23:30 Urine Ketones Neg mg/dL (Negative) 03/20/19 23:30 Urine Blood Neg (Negative) 03/20/19 23:30 Urine Nitrite Neg (Negative) 03/20/19 23:30 Urine Bilirubin Neg (Negative) 03/20/19 23:30 Urine Urobilinogen 2.0 mg/dL (<2.0) 03/20/19 23:30 Ur Leukocyte Esterase Neg (Negative) 03/20/19 23:30 Urine WBC (Auto) < 1.0 /HPF (0.0-6.0) 03/20/19 23:30 Urine RBC (Auto) 1.0 /HPF (0.0-6.0) 03/20/19 23:30 Urine Mucus Few /HPF 03/20/19 23:30 Active Medications - Current Medications Current Medications: Generic Name Dose Route Start Last Admin Trade Name Freq PRN Reason Stop Dose Admin Acetaminophen 650 mg 03/21/19 08:02 03/21/19 11:31 Tylenol [place] 650 mg Q6H PRN Administration Pain, Mild (1-3) Enoxaparin Sodium 40 mg 03/21/19 10:00 03/23/19 09:37 Enoxaparin SUB-Q 40 mg QDAY FRANTZ Administration Levofloxacin/Dextrose 500 mg in 100 mls @ 100 mls/hr 03/21/19 10:00 03/23/19 09:37 Levaquin 500mg/100ml IV 100 mls/hr Q24HR FRANTZ Administration Protocol Metronidazole 500 mg in 100 mls @ 100 mls/hr 03/21/19 06:00 03/23/19 14:40 Flagyl 500 Mg/100 Ml IV 100 mls/hr Q8HR FRANTZ Administration Protocol Sodium Chloride 1,000 mls @ 125 mls/hr 03/21/19 19:45 03/23/19 09:38 Nacl 0.9% 1000 Ml IV 125 mls/hr DIRECT FRANTZ Administration Morphine Sulfate 2 mg 03/21/19 00:42 03/23/19 07:41 Morphine IV 2 mg Q4H PRN Administration Pain, Moderate (4-6) Ondansetron HCl 4 mg 03/21/19 00:41 Zofran IV Q6H PRN Nausea And Vomiting Sodium Chloride 10 ml 03/21/19 10:00 03/22/19 22:58 Sodium Chloride Flush Syringe 10 Ml IV 10 ml BID FRANTZ Administration Sodium Chloride 10 ml 03/21/19 00:41 Sodium Chloride Flush Syringe 10 Ml IV PRN PRN LINE FLUSH Nutrition/Malnutrition Assess - Dietary Evaluation Nutrition/Malnutrition Findings: Nutrition Notes Start: 03/21/19 10:41 Freq: Status: Active Protocol: Document 03/21/19 10:42 CW (Rec: 03/21/19 11:07 CW [id number]) Co-Sign 03/21/19 10:42 LP Nutrition Notes Need for Assessment generated from: 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 Pt reports having a good appetite and denies N/V/D. Pt states a UBW of 290 lbs and that he last weighed that in November 2018. Pt reported that the wt loss was D/T increase in work schedule but that now he is attempting to maintain his wt. Pt given diet edu related to a low fiber diet during times of diverticulitis flare up. Integrated Pest Management Technician stressed importance of fiber in diet when asymptomatic and need to decrease fiber intake when symptomatic. Burn Absent Trauma Absent GI Symptoms Other Current % PO Negligible Minimum of two criteria No physical signs of malnutrition #1 Nutrition Diagnosis Inadequate oral intake Etiology perforation of the colon D/T diverticulitis As Evidenced by Signs and Symptoms NPO status Is patient on ventilator? No Is Patient Ambulatory and/or Out of Bed Yes REE-([place]-ambulatory/OOB) [ 2856.100 NUTR.MSJOOB] Kcal/Kg value to use for calculation 18 Approximate Energy Requirements Using 2311 kcal/Kg Calculation Used for Recommendations Kcal/kg Additional Notes protein needs: 84 - 105 g (0.8 - 1 g/kgAdBW: AdBW: 104.65 kg ) fluid needs: 1 ml/kcal Nutrition Intervention Change Diet Order: advance diet as medically feasible Teaching Recipient Patient Learning Readiness Good Teaching Methods Discussion,Handout Response to Teaching Verbalize understanding Education Handouts Provided Diverticulitis - Low fiber diet Fiber Food list Barriers to Learning No Barriers RD phone number provided Yes Patient aware of follow up options Yes Goal #1 Advance diet as medically feasible Anticipated Discharge Needs: Regular diet Follow-Up By: 03/25/19 Additional Comments F/U diet advancement
[2019-03-24] MEDS: MORPHINE 2 MG/1 ML INJ IV PRN (00:28)
[2019-03-24] MEDS: metroNIDAZOLE/NS 500 MG/100 ML 500 MG/100 ML BAG IV SCH ×3 (06:31→22:29)
[2019-03-24] MEDS: ENOXAPARIN 40 MG/0.4 ML INJ SUB-Q SCH (10:17)
--- NOTE | 2019-03-24 16:28 | Progress Note ---
Assessment and Plan 48-year-old male with acute sigmoid diverticulitis with contained microperforation Plan: Patient's abdominal pain is significantly improved, almost resolved. He has been afebrile and blood cultures have been negative thus far. 1. adv to soft diet 2. ok to dc IVF 3. IV abx - on levaquin and flagyl. Complete 14 day course of abx. Upon dc, transition to oral cipro and flagyl 4. prn pain and nausea control 5. outpatient follow up with GI in 6 weeks to be set up for colonoscopy 6. radiologic technologist mammogram consult Pt may be discharged in am tomorrow if he tolerates a soft diet. He was counselled on diet. All questions answered. Thank you, please call with questions. Subjective Date of service: 03/24/19 Narrative: Patient seen and examined. He is tolerating a clear liquid diet without nausea or vomiting. His pain is minimal and very well controlled. He is having formed bowel movements. No fevers, chills. Objective Vital Signs - 12hr 03/24/19 03/24/19 07:20 12:10 Temperature 97.8 F 98.0 F Pulse Rate 82 79 Respiratory 19 19 Rate Blood Pressure 128/90 140/97 O2 Sat by Pulse 98 97 Oximetry - General physical appearance Narrative Exam: General: Awake, alert, oriented x3. No apparent distress CV: S1, S2 present Respiratory: No wheezes Abdomen: Soft, nondistended, mild discomfort on palpation of the left lower quadrant. No rebound, rigidity, guarding Extremities: No clubbing, cyanosis, edema - Labs 03/23/19 06:16 03/22/19 06:26
--- NOTE | 2019-03-24 19:58 | Progress Note ---
Assessment and Plan Assessment and plan: 48-year-old male patient was admitted with acute abdominal and testicular pain , initial evaluation with CT abdomen/pelvis showed acute diverticulitis with contained perforation. General surgery evaluated the patient recommend conservative management with bowel rest IV fluids IV antibiotics Symptoms gradually improved started clear liquids, advanced as tolerated. Today patient is comfortable, surgery recommend to continue current management possible discharge in 1 to 2 days --Acute sigmoid diverticulitis with contained microperforation; Surgery following, on IV antibiotics, pain medications, IV fluids Signs significantly improved, today patient feels slightly better Advance diet to GI soft --Acute testicular pain;resolved Probably referred pain from abdomen testicular ultrasound negative for abnormality --Ongoing tobacco use; smoking cessation counseling Nicotine patch as needed --Recreational drug use; advised to quit cocaine And other recreational drug use Verbalized understanding --Obesity; BMI 38.4; Advised weight reduction when medically stable --DVT prophylaxis; Lovenox Monitor closely and adjust management as needed Plan of care reviewed with the patient and his nurse Disposition; advance diet as tolerated Possible discharge home tomorrow if cleared by surgery History Interval history: Patient feels better, had bowel movement today Tolerating clear liquids Alert awake oriented Vital signs noted Hospitalist Physical - Constitutional Vitals: Temp Pulse Resp BP Pulse Ox 97.9 F 76 19 133/96 99 03/24/19 15:46 03/24/19 15:46 03/24/19 15:46 03/24/19 15:46 03/24/19 15:46 General appearance: Present: no acute distress, well-nourished, obese - EENT Eyes: Present: PERRL, EOM intact - Neck Neck: Present: supple, normal ROM - Respiratory Respiratory effort: normal Respiratory: bilateral: diminished, negative: rales, rhonchi, wheezing - Cardiovascular Rhythm: regular Heart Sounds: Present: S1 & S2 - Extremities Extremities: no ischemia, No edema - Abdominal General gastrointestinal: soft, non-tender, non-distended, normal bowel sounds - Integumentary Integumentary: Present: clear, warm - Psychiatric Psychiatric: appropriate mood/affect, cooperative - Neurologic Neurologic: CNII-XII intact, moves all extremities Results - Labs CBC & Chem 7: 03/23/19 06:16 03/22/19 06:26 Labs: Laboratory Last Values WBC 9.6 K/mm3 (4.5-11.0) 03/23/19 06:16 RBC 4.38 M/mm3 (3.65-5.03) 03/23/19 06:16 Hgb 11.8 gm/dl (11.8-15.2) 03/23/19 06:16 Hct 36.7 % (35.5-45.6) 03/23/19 06:16 MCV 84 fl (84-94) 03/23/19 06:16 MCH 27 pg (28-32) L 03/23/19 06:16 MCHC 32 % (32-34) 03/23/19 06:16 RDW 13.8 % (13.2-15.2) 03/23/19 06:16 Plt Count 234 K/mm3 (140-440) 03/23/19 06:16 Lymph % (Auto) 23.9 % (13.4-35.0) 03/23/19 06:16 [place] % (Auto) 10.8 % (0.0-7.3) H 03/23/19 06:16 Eos % (Auto) 1.0 % (0.0-4.3) 03/23/19 06:16 Baso % (Auto) 0.9 % (0.0-1.8) 03/23/19 06:16 Lymph # 2.3 K/mm3 (1.2-5.4) 03/23/19 06:16 [place] # 1.0 K/mm3 (0.0-0.8) H 03/23/19 06:16 Eos # 0.1 K/mm3 (0.0-0.4) 03/23/19 06:16 Baso # 0.1 K/mm3 (0.0-0.1) 03/23/19 06:16 Seg Neutrophils % 63.4 % (40.0-70.0) 03/23/19 06:16 Seg Neutrophils # 6.1 K/mm3 (1.8-7.7) 03/23/19 06:16 Sodium 139 mmol/L (137-145) 03/22/19 06:26 Potassium 4.1 mmol/L (3.6-5.0) 03/22/19 06:26 Chloride 101.6 mmol/L (98-107) 03/22/19 06:26 Carbon Dioxide 22 mmol/L (22-30) 03/22/19 06:26 Anion Gap 20 mmol/L 03/22/19 06:26 BUN 15 mg/dL (9-20) 03/22/19 06:26 Creatinine 1.0 mg/dL (0.8-1.5) 03/22/19 06:26 Estimated GFR > 60 ml/min 03/22/19 06:26 BUN/Creatinine Ratio 15 % 03/22/19 06:26 Glucose 87 mg/dL (75-100) 03/22/19 06:26 Calcium 8.7 mg/dL (8.4-10.2) 03/22/19 06:26 Total Bilirubin 0.30 mg/dL (0.1-1.2) 03/20/19 21:42 AST 15 units/L (5-40) 03/20/19 21:42 ALT 19 units/L (7-56) 03/20/19 21:42 Alkaline Phosphatase 46 units/L (35-129) 03/20/19 21:42 Total Protein 7.2 g/dL (6.3-8.2) 03/20/19 21:42 Albumin 4.2 g/dL (3.9-5) 03/20/19 21:42 Albumin/Globulin Ratio 1.4 % 03/20/19 21:42 Lipase 50 units/L (13-60) 03/20/19 21:48 Urine Color Yellow (Yellow) 03/20/19 23:30 Urine Turbidity Clear (Clear) 03/20/19 23:30 Urine pH 6.0 (5.0-7.0) 03/20/19 23:30 Ur Specific [place] 1.051 (1.003-1.030) H 03/20/19 23:30 Urine Protein <15 mg/dl mg/dL (Negative) 03/20/19 23:30 Urine Glucose (UA) Neg mg/dL (Negative) 03/20/19 23:30 Urine Ketones Neg mg/dL (Negative) 03/20/19 23:30 Urine Blood Neg (Negative) 03/20/19 23:30 Urine Nitrite Neg (Negative) 03/20/19 23:30 Urine Bilirubin Neg (Negative) 03/20/19 23:30 Urine Urobilinogen 2.0 mg/dL (<2.0) 02/13/20 23:30 Ur Leukocyte Esterase Neg (Negative) 03/20/19 23:30 Urine WBC (Auto) < 1.0 /HPF (0.0-6.0) 03/20/19 23:30 Urine RBC (Auto) 1.0 /HPF (0.0-6.0) 03/20/19 23:30 Urine Mucus Few /HPF 03/20/19 23:30 Active Medications - Current Medications Current Medications: Generic Name Dose Route Start Last Admin Trade Name Freq PRN Reason Stop Dose Admin Acetaminophen 650 mg 03/21/19 08:02 03/21/19 11:31 Tylenol AR 650 mg Q6H PRN Administration Pain, Mild (1-3) Enoxaparin Sodium 40 mg 03/21/19 10:00 03/24/19 10:17 Enoxaparin SUB-Q 40 mg QDAY FRANTZ Administration Levofloxacin/Dextrose 500 mg in 100 mls @ 100 mls/hr 03/21/19 10:00 03/24/19 10:17 Levaquin 500mg/100ml IV 100 mls/hr Q24HR FRANTZ Administration Protocol Metronidazole 500 mg in 100 mls @ 100 mls/hr 03/21/19 06:00 03/24/19 13:54 Flagyl 500 Mg/100 Ml IV 100 mls/hr Q8HR FRANTZ Administration Protocol Morphine Sulfate 2 mg 03/21/19 00:42 03/24/19 00:28 Morphine IV 2 mg Q4H PRN Administration Pain, Moderate (4-6) Ondansetron HCl 4 mg 03/21/19 00:41 Zofran IV Q6H PRN Nausea And Vomiting Sodium Chloride 10 ml 03/21/19 10:00 03/24/19 13:55 Sodium Chloride Flush Syringe 10 Ml IV 10 ml BID FRANTZ Administration Sodium Chloride 10 ml 03/21/19 00:41 Sodium Chloride Flush Syringe 10 Ml IV PRN PRN LINE FLUSH Nutrition/Malnutrition Assess - Dietary Evaluation Nutrition/Malnutrition Findings: Nutrition Notes Start: 03/21/19 10:41 Freq: Status: Active Protocol: Document 03/21/19 10:42 CW (Rec: 03/21/19 11:07 CW [id number]) Co-Sign 03/21/19 10:42 LP Nutrition Notes 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 Pt reports having a good appetite and denies N/V/D. Pt states a UBW of 290 lbs and that he last weighed that in November 2018. Pt reported that the wt loss was D/T increase in work schedule but that now he is attempting to maintain his wt. Pt given diet edu related to a low fiber diet during times of diverticulitis flare up. Manager Media stressed importance of fiber in diet when asymptomatic and need to decrease fiber intake when symptomatic. Burn Absent Trauma Absent GI Symptoms Other Current % PO Negligible Minimum of two criteria No physical signs of malnutrition #1 Nutrition Diagnosis Inadequate oral intake Etiology perforation of the colon D/T diverticulitis As Evidenced by Signs and Symptoms NPO status Is patient on ventilator? No Is Patient Ambulatory and/or Out of Bed Yes REE-([facility]-ambulatory/OOB) [ 2856.100 [id number]] Kcal/Kg value to use for calculation 18 Approximate Energy Requirements Using 2311 kcal/Kg Calculation Used for Recommendations Kcal/kg Additional Notes protein needs: 84 - 105 g (0.8 - 1 g/kgAdBW: AdBW: 104.65 kg ) fluid needs: 1 ml/kcal Nutrition Intervention Change Diet Order: advance diet as medically feasible Teaching Recipient Patient Learning Readiness Good Teaching Methods Discussion,Handout Response to Teaching Verbalize understanding Education Handouts Provided Diverticulitis - Low fiber diet Fiber Food list Barriers to Learning No Barriers RD phone number provided Yes Patient aware of follow up options Yes Goal #1 Advance diet as medically feasible Anticipated Discharge Needs: Regular diet Follow-Up By: 03/25/19 Additional Comments F/U diet advancement
[2019-03-25] MEDS: MORPHINE 2 MG/1 ML INJ IV PRN (01:18)
[2019-03-25] MEDS: metroNIDAZOLE/NS 500 MG/100 ML 500 MG/100 ML BAG IV SCH ×2 (05:08→14:00)
[2019-03-25 08:52] VITALS: BP 142/96
[2019-03-25] MEDS: ENOXAPARIN 40 MG/0.4 ML INJ SUB-Q SCH (11:08)
--- NOTE | 2019-03-25 12:36 | Progress Note ---
Assessment and Plan 48-year-old male with acute sigmoid diverticulitis with contained microperforation Plan: Patient with abdominal pain resolved. [place] soft diet. AF 1. soft diet upon dc for 2 weeks, then increase to high fiber diet. 2. IV abx - on levaquin and flagyl. Complete 14 day course of abx. Upon dc, transition to oral cipro and flagyl 3. prn pain and nausea control 4. outpatient follow up with GI in 6 weeks to be set up for colonoscopy Pt may be discharged from surgical standpoint. Thank you, please call with questions. Subjective Date of service: 03/25/19 Narrative: Patient seen and examined. He is tolerating a soft diet. No nausea, vomiting, abdominal pain. No fevers, chills. Objective Vital Signs - 12hr 03/25/19 03/25/19 03/25/19 00:41 01:18 04:15 Temperature 97.4 F L 97.6 F Pulse Rate 78 73 Respiratory 18 17 20 Rate Blood Pressure 133/89 142/98 O2 Sat by Pulse 95 98 Oximetry 03/25/19 08:08 Temperature 97.4 F L Pulse Rate 83 Respiratory 19 Rate Blood Pressure 142/96 O2 Sat by Pulse 97 Oximetry - General physical appearance Narrative Exam: General: Awake, alert, oriented x3. No apparent distress CV: S1, S2 present Respiratory: No audible wheezes Abdomen: Soft, nontender, nondistended Extremities: No clubbing, cyanosis, edema - Labs 03/23/19 06:16 03/22/19 06:26
--- NOTE | 2019-03-25 16:31 | Discharge Summary ---
Providers - Providers Date of Admission: 03/21/19 00:32 Date of discharge: 03/25/19 Attending physician: TRUDI MCDERMOTT 03/21/19 00:35 Consult to Physician [CONS] Stat Comment: Will evaluate in the morning Consulting Provider: FRAN BHANDARI Physician Instructions: Keep NPO; IV antibiotics; pain control; Reason For Exam: Sigmoid diverticulitis with perforation 03/24/19 15:46 Consult to Dietitian/Nutrition [CONS] Routine Physician Instructions: Reason For Exam: Reason for Consult: diverticulitis diet Primary care physician: PRESIDENT CELEBRITY ACQUISTION Hospitalization Condition: Stable Pertinent studies: Testicular UA abdomen/pelvis CT Hospital course: Discharge Diagnosis: 48-year-old male patient was admitted with acute abdominal and testicular pain , initial evaluation with CT abdomen/pelvis showed acute diverticulitis with contained perforation. General surgery evaluated the patient recommend conservative management with bowel rest IV fluids IV antibiotics Symptoms gradually improved started clear liquids, advanced as tolerated. Today patient is comfortable, surgery recommend to continue current management possible discharge in 1 to 2 days --Acute sigmoid diverticulitis with contained microperforation; Surgery following, on IV antibiotics, pain medications, IV fluids Signs significantly improved, today patient feels slightly better Advance diet to GI soft --Acute testicular pain;resolved Probably referred pain from abdomen testicular ultrasound negative for abnormality --Ongoing tobacco use; smoking cessation counseling Nicotine patch as needed --Recreational drug use; advised to quit cocaine And other recreational drug use Verbalized understanding --Obesity; BMI 38.4; Advised weight reduction when medically stable --DVT prophylaxis; Lovenox Disposition; home with outpt f/u Hospitalist Physical General appearance: Present: no acute distress, well-nourished, obese - EENT Eyes: Present: PERRL, EOM intact - Neck Neck: Present: supple, normal ROM - Respiratory Respiratory effort: normal Respiratory: bilateral: diminished, negative: rales, rhonchi, wheezing - Cardiovascular Rhythm: regular Heart Sounds: Present: S1 & S2 - Extremities Extremities: no ischemia, No edema - Abdominal General gastrointestinal: soft, non-tender, non-distended, normal bowel sounds - Integumentary Integumentary: Present: clear, warm - Psychiatric Psychiatric: appropriate mood/affect, cooperative - Neurologic Neurologic: CNII-XII intact, moves all extremities Disposition: DC-30 STILL A PATIENT Time spent for discharge: 34 minutes Core Measure Documentation - Palliative Care Palliative Care/ Comfort Measures: Not Applicable - Core Measures Any of the following diagnoses?: none Exam - Constitutional Vitals: Temp Pulse Resp BP Pulse Ox 97.6 F 68 19 142/96 98 03/25/19 11:59 03/25/19 11:59 03/25/19 11:59 03/25/19 11:59 03/25/19 11:59 Plan Activity: advance as tolerated Weight Bearing Status: Weight Bear as Tolerated Diet: advance as tolerated Additional Instructions: Need colonoscopy in 6 weeks as outpt Follow up with: ISAIAS LIM MD [Staff Physician] - 6 Weeks PRIMARY CAREMD [Primary Care Provider] - 7 Days Prescriptions: Ciprofloxacin HCl [Ciprofloxacin TAB] 500 mg PO Q12HR #20 tab metroNIDAZOLE [Flagyl] 500 mg PO Q8HR #30 tablet
== END 2019-03-25 17:33 | disposition home or self-care (01) | DRG 392 ==
LOC: ED 19:16 → 3B-SURG 03-21 00:32
PROVIDERS: ADMIT Internal Medicine; ATTEND Internal Medicine
DX: K57.20 Diverticulitis of large intestine with perforation and abscess without bleeding (principal); F17.210 Nicotine dependence, cigarettes, uncomplicated; N50.819 Testicular pain, unspecified; F14.10 Cocaine abuse, uncomplicated; E66.9 Obesity, unspecified; Z71.6 Tobacco abuse counseling; Z68.38 Body mass index [BMI] 38.0-38.9, adult; Z71.51 Drug abuse counseling and surveillance of drug abuser; Z71.3 Dietary counseling and surveillance
CPT/HCPCS: 36415; 74177; 80048; 80053; 81001; 83690; 85025; 87040; 87086; 93975; 96374; 96375; 99406; G0378; J1170; J1650; J1885; J1956; J2270; J2405; J2543; J7030; Q9967